=== PATIENT | male | born 1975 | race Caucasian/White ===

== ENCOUNTER → 2017-02-11 | Outpatient (CLI) | payer BC ==
[2015-12-23 22:30] VITALS: BP 131/74
--- NOTE | 2017-02-11 09:55 | RAD ---
Abdominal ultrasound, 02/11/2017: History: Abdominal pain The gallbladder is within normal limits in size. There is no sonographic evidence of cholelithiasis. The common hepatic duct is of normal caliber. The liver is enlarged measuring 20 cm in craniocaudad extent at the level of the right lobe. No hepatic mass is seen. The visualized portions of pancreas, spleen and both kidneys are unremarkable. The abdominal aorta and inferior vena cava show no abnormality. No free fluid is evident in the abdomen. IMPRESSION: 1. Hepatomegaly. 2. The abdominal ultrasound is otherwise unremarkable.
== END | disposition home or self-care (01) ==
LOC: US 06:33
PROVIDERS: ATTEND Family Medicine
DX: R16.0 Hepatomegaly, not elsewhere classified (principal)
CPT/HCPCS: 76700